=== PATIENT | female | born 1935 | race Caucasian/White ===

== ENCOUNTER 2016-12-28 12:30 | Inpatient (IN) | payer MEDICARE, MEDICAID ==
[2016-12-28] VITALS (10 sets, daily range): BP systolic 118–165; BP diastolic 63–92; PULSE 61–80; RESP 18–33; O2SAT 94–99
[~2016-12-28] VITALS: Ht 167.6 cm; Wt 137.9 kg
[~2016-12-28 12:30] MED LIST: ASPI-973 PO; ATEN25TA PO; CHOL100045 PO; HYDR-3939 PO; IPRA4AER IH; LISI-567 PO; OMEG-38 PO; ROPI0.5T2 PO; SERT100T9 PO; SULF1TAB35 PO; SYMINH INHALATION; TRAZ-115 PO; Vancomycin Dose per Pharmacist XX ONE
--- NOTE | 2016-12-28 12:48 | ED.REPORT ---
HPI-Dyspnea / Wheezing Date of Service Dec 28, 2016 ED Provider: Zurdo Jones DO Pt is an 81 y.o. female with a hx of CHF, HLD, and COPD on chronic c-pap who presents to the ED via EMS from an [facility] with increased SOB. Pt was on 4L of O2 and still had sats in the high 80's per EMS. PT told EMS that she has had worsening SOB over the past 2 days. Nurse at [facility] noticed increased work of breathing today and called EMS. Pt currently denies any pain. Nursing Notes Stated Complaint: SHORTNESS OF BREATH Chief Complaint: Respiratory Distress Nursing Notes Reviewed: Yes Allergies: Coded Allergies: No Known Allergies (Verified , 12/29/16) Scheduled Albuterol/Ipratropium (Combivent Respimat Inhal [place]) 120 Spr/4 Gm Inhaler 1 PUFF IH BID Aspirin (Aspirin) 81 Mg Tablet 81 MG PO DAILY Atenolol (Atenolol) 25 Mg Tablet 12.5 MG PO BID hold if SBP<110 or HR<60 Azithromycin (Azithromycin) 500 Mg Tablet 500 MG PO DAILY Budesonide/Formoterol 160-4.5 mcg Inh (Symbicort 160-4.5 mcg Inh) 120 Puff Inhaler 1 PUFF INHALATION BID Cholecalciferol (Vitamin D3) (Vitamin D) 1,000 Unit Capsule 2,000 UNIT PO DAILY Furosemide (Furosemide) 80 Mg Tab 80 MG PO DAILY Hydralazine (Hydralazine) 25 Mg Tablet 50 MG PO BID Lisinopril (Lisinopril) 20 Mg Tablet 20 MG PO BID Nystatin (Nystatin) 1 Each Powder.ea. 1 APPLIC TOPICAL BID [place]-3/Dha/Epa/Fish Oil (Fish Oil 1,000 mg Softgel) 1 Each Capsule 1 EACH PO DAILY Potassium Chloride (Potassium Chloride) 10 Meq Capsule.er 10 MEQ PO HS TAKE WITH FOOD Prednisone (PredniSONE) 20 Mg Tablet 20 MG PO DAILY Ropinirole (Ropinirole) 0.5 Mg Tablet 0.5 MG PO BID Sertraline HCl (Sertraline) 100 Mg Tablet 100 MG PO DAILY Trazodone (Trazodone) 50 Mg Tablet 100 MG PO HS Scheduled PRN Acetaminophen (Acetaminophen) 325 Mg Capsule 650 MG PO QID PRN PRN For Pain General Time Seen by MD: 12:41 Transferred From: snf Chief Complaint Shortness of breath Hx Obtained From: Patient, EMS Arrived By: Ambulance Sudden in Onset?: Yes Onset Occurred: Just prior to arrival Symptom Duration: Since onset Severity: Current: No pain currently Severity: Maximum: No pain Past Medical History Past Medical History Notes: Admitted for syncope in 2007 Echo EF of 65% and LVH in 2005 Past Medical History Hypertension DJD Clinical back pain Impression Nephrolithiasis History of recurrent urinary tract infections Obesity Hyperlipidemia COPD Reports: Congestive heart failure Past Surgical History Lower lumbar laminectomy Cholecystectomy Appendectomy Smoking History Former Smoker Social History Alcohol Use: "Social" Other Social History: Lives in [facility] Ambulatory Status Independent Review of Systems Respiratory: Reports: Shortness of breath Cardiovascular: Denies: Chest pain Musculoskeletal: Denies: Back pain, Extremity pain, Neck pain Complete sys rev & neg: except as marked. Physical Exam Initial Vital Signs Initial VS: Reviewed Head / Eyes: Atraumatic, Normocephalic Abdomen / GI: Soft, Non-tender, No distention Extremities: Vascular intact, Neuro intact Neurologic: Alert, Oriented, Nonfocal Psychiatric: Mood/affect normal, Behavior normal, Normal thought content General/Constitutional: Awake Appearance / Presentation: Positive: Obese, morbidly Neck: Atraumatic Resp Distress / Stridor: Positive: Resp distress severe Wheezing / Retractions: Positive: Accessory muscle use sev Pt on CPAP Expiratory coarse lung sounds throughout Cardiovascular: Heart rate NL, Regular rhythm, Heart sounds NL Lower Ext Edema: Positive: Bilateral 1+, Pitting Right Leg / Calf: Positive: Erythema present Left Leg / Calf: Positive: Erythema present Chronic lower extremity skin thickening Interpretation & Diagnostics Lab Results Interpretation Result Diagram: 01/01/175 01/01/17 0225 Test 12/28/16 13:00 12/28/16 13:21 Prothrombin Time 11.6sec (8.1-12.5) Prothromb Time International Ratio 1.08ratio Activated Partial Thromboplast Time 28.9sec (22.8-33.0) Urine Color Yellow (YELLOW) Urine Appearance Cloudy (CLEAR,HAZY) Urine pH 6.0 (5.0-8.0) Urine Specific [place] 1.018 (1.003-1.035) Urine Protein 100mg/dL (NEG,TRACE) Urine Glucose (UA) Negativemg/dL (NEGATIVE) Urine Ketones Negativemg/dL (NEGATIVE) Urine Occult Blood Trace (NEGATIVE) Urine Nitrite Positive (NEGATIVE) Urine Bilirubin Negative (NEGATIVE) Urine Urobilinogen Normalmg/dL (NORMAL) Urine Leukocyte Esterase Small (NEGATIVE) Urine RBC 0-2/hpf (0-2) Urine WBC 11-50/hpf (0-5) Urine Epithelial Cells Occasional/hpf (NONE-MOD) Urine Crystals None seen (NONE SEEN) Urine Bacteria Many/hpf (NONE-FEW) Urine Hyaline Casts None/lpf (NONE) Urine Granular Casts None seen (NONE SEEN) Urine Waxy Casts None seen (NONE SEEN) Urine Red Blood Cell Casts None seen (NONE SEEN) Urine White Blood Cell Casts None seen (NONE SEEN) Urine Mucus None seen (None Seen) Urine Trichomonas None seen (NONE SEEN) Urine Yeast None (NONE SEEN) Urinalysis Comment None Urine Culture Reflexed Indicated Lactic Acid Level 1.3mmol/L (0.4-2.0) Urine Legionella pneumophilia Ag Negative (Negative) Lab Results Interpretation: pH 7.42/52/60/33.4 FIO2 40 ECG Interpretation ECG Interpretation: LVH Similar to 07/20/16 Time: 13:04 Interpreted by: ED physician Normal ECG Interpretation: Normal rate (77), Normal sinus rhythm X-Ray Chest Interpretation Chest Xray Interpretation: IMPRESSION: Findings suspicious for right lower lung aspiration or pneumonia. Dictated by: Eddie Rabago M.D. on 12/28/2016 at 13:36 Approved by: Eddie Rabago M.D. on 12/28/2016 at 13:37 Re-Eval/Medical Decision Med Decision/Clinical Course 81-year-old female with a history of chronic oxygen and BiPAP dependent COPD presents by EMS with increasing respiratory distress over the past 3 days. She is a DO NOT RESUSCITATE/DO NOT INTUBATE patient which I did confirm with her at arrival. I also confirmed this with her daughter. She was switched to from EMS CPAP to hospital BiPAP at arrival and given a nebulizer of DuoNeb and her distress somewhat improved. She was also treated with magnesium, Solu-Medrol, and broad-spectrum antibiotics (Zosyn, vancomycin, and Levaquin) given that she is a prison resident. Found to have a right lower lobe pneumonia by chest x-ray. MAXIMUM TEMPERATURE of 39.2 in the ER with white count near 30 meeting criteria for sepsis. ABG revealed 7.4/52/60 on BiPAP 18/10 40% FiO2. Admitted to ICU Source of Hx: Old records Re-Evaluation/Progress : Time of Eval: 16:34 Re-Evaluation/Progress Note: Pt rechecked. Daughter is now present. Discussed labs, imaging results, and plan to admit. They understand and agree with plan. Confirmed pt code status. Consultation : Referral / Consult Name: Abena Joel MD Call Returned at: 15:23 Records Technician: Accepts admit Note: Discussed pt condition. Accepts admit. Counseled Regarding: Diagnosis, Lab results, Need for admission Discharge & Departure Impression: Primary Impression: Sepsis Sepsis type: sepsis due to unspecified organism Qualified Code: A41.9 - Sepsis, unspecified organism Additional Impressions: Right lower lobe pneumonia Pneumonia type: due to unspecified organism Qualified Code: J18.9 - Pneumonia, unspecified organism UTI (urinary tract infection) Urinary tract infection type: acute cystitis Hematuria presence: without hematuria Qualified Code: N30.00 - Acute cystitis without hematuria Respiratory failure Chronicity: acute on chronic Respiratory failure complication: hypoxia and hypercapnia Qualified Code: J96.21 - Acute and chronic respiratory failure with hypoxia Disposition: ADMITTED TO HOSPITAL Discharge Condition All VS Reviewed: Yes Condition: Stable Referrals: Jasmeet Xavier MD (PCP) Crit Care Except Billable Proc Time Spent: 30-74 minutes Services Performed: Patient management by me, Time spent at bedside, Reviewing test results, Reviewing imaging, Discussing patient care, Documentation in record Scribe Attestation Portions of this note were transcribed by Staci Lemus. I, Dr. Jones personally performed the history, physical exam and medical decision-making; I reviewed and confirmed the accuracy of the information in the transcribed note. Signed by: Fuentes De Anda, 12/28/2016 and 1637. copies to: Jasmeet Xavier MD, Gary R DO Dec 28, 2016 12:47 STACI LEMUS Dec 28, 2016 12:54 Urine Bilirubin Negative (NEGATIVE) Urine Urobilinogen Normalmg/dL (NORMAL) Urine Leukocyte Esterase Small (NEGATIVE) Urine RBC 0-2/hpf (0-2) Urine WBC 11-50/hpf (0-5) Urine Epithelial Cells Occasional/hpf (NONE-MOD) Urine Crystals None seen (NONE SEEN) Urine Bacteria Many/hpf (NONE-FEW) Urine Hyaline Casts None/lpf (NONE) Urine Granular Casts None seen (NONE SEEN) Urine Waxy Casts None seen (NONE SEEN) Urine Red Blood Cell Casts None seen (NONE SEEN) Urine White Blood Cell Casts None seen (NONE SEEN) Urine Mucus None seen (None Seen) Urine Trichomonas None seen (NONE SEEN) Urine Yeast None (NONE SEEN) Urinalysis Comment None Urine Culture Reflexed Indicated Lactic Acid Level 1.3mmol/L (0.4-2.0) Urine Legionella pneumophilia Ag Negative (Negative) Lab Results Interpretation: pH 7.42/52/60/33.4 FIO2 40 ECG Interpretation ECG Interpretation: LVH Similar to 07/20/16 Time: 13:04 Interpreted by: ED physician Normal ECG Interpretation: Normal rate (77), Normal sinus rhythm X-Ray Chest Interpretation Chest Xray Interpretation: IMPRESSION: Findings suspicious for right lower lung aspiration or pneumonia. Dictated by: Eddie Rabago M.D. on 12/28/2016 at 13:36 Approved by: Eddie Rabago M.D. on 12/28/2016 at 13:37 Re-Eval/Medical Decision Source of Hx: Old records Re-Evaluation/Progress : Time of Eval: 16:34 Re-Evaluation/Progress Note: Pt rechecked. Daughter is now present. Discussed labs, imaging results, and plan to admit. They understand and agree with plan. Confirmed pt code status. Consultation : Referral / Consult Name: Abena Joel MD Call Returned at: 15:23 Records Technician: Accepts admit Note: Discussed pt condition. Accepts admit. Counseled Regarding: Diagnosis, Lab results, Need for admission Discharge & Departure Impression: Primary Impression: Sepsis Additional Impressions: Respiratory distress Right lower lobe pneumonia UTI (urinary tract infection) Disposition: ADMITTED TO HOSPITAL Discharge Condition All VS Reviewed: Yes Condition: Stable Referrals: Jasmeet Xavier MD (PCP) Crit Care Except Billable Proc Time Spent: 30-74 minutes Services Performed: Patient management by me, Time spent at bedside, Reviewing test results, Reviewing imaging, Discussing patient care, Documentation in record Scribe Attestation Portions of this note were transcribed by Staci Lemus. Dr. Robert Chahal personally performed the history, physical exam and medical decision-making; I reviewed and confirmed the accuracy of the information in the transcribed note. Signed by: Fuentes De Anda, 12/28/2016 and 1637. copies to: Jasmeet Xavier MD, Gary R DO Dec 28, 2016 12:47 STACI LMEUS Dec 28, 2016 12:54
[2016-12-28] MEDS ORDERED: Albuterol-Ipratropium 3 mL Inhalation Solution ONE (12:49)
[2016-12-28] MEDS ORDERED: Albuterol-Ipratropium 3 mL Inhalation Solution NEB ONE (12:50)
[2016-12-28] MEDS ORDERED: MethylprednisoLONE Sodium Succinate 62.5 mg/mL 2 mL Inj IVPUSH ONE (12:50)
[2016-12-28] MEDS ORDERED: Albuterol 2.5 mg/3 mL Inhalation Solution NEB ONE (12:50)
[2016-12-28] MEDS ORDERED: Magnesium Sulf 2 Gm/50mL Water 2 GM in IV Premix 1 EACH IV ONE ×2 (12:50→16:55)
[2016-12-28] MEDS ORDERED: Piperacillin-Tazo 3.375 Gm Inj 3.375 GM in Dextrose 5% Minibag Plus 50 ML IV ONE (13:30)
[2016-12-28] MEDS ORDERED: Vancomycin Inj 2,000 MG in 0.9% Sodium Chloride 500 ML IV ONE (13:35)
[2016-12-28 13:37] LABS: BASOPHILS % (AUTO) 0.1 % (0-3); EOSINOPHILS % (AUTO) 0 % (0-5); Mean Corpuscular Hemoglobin 29.7 pg (27.0-35.0)
--- NOTE | 2016-12-28 13:39 | DRSVH ---
PROCEDURE: X-RAY CHEST ONE VIEW, PORTABLE ([id number]) INDICATIONS: 81 year-old female with shortness of breath. TECHNIQUE: One view of the chest was acquired. COMPARISON: [facility], CR, XR CHEST 1VW (PORTABLE), 07/20/2016, 11:07. [facility], CR, XR CHEST 1VW (PORTABLE), 07/19/2015, 15:30. [facility], CR, CHEST 1VW (PORTAB LE), 06/27/2008, 13:28. FINDINGS: Surgical changes and devices: None. Lungs and pleura: No pleural effusions or pneumothorax. There is new right lower lung airspace opaci ty. Left lung appears clear. Mediastinum: Mediastinal contours appear normal. Mild cardiomegaly is unchanged. Bones and chest wall: No suspicious bony lesions. Overlying soft tissues appear unremarkable. IMPRESSION: Findings suspicious for right lower lung aspiration or pneumonia. Dictated by: Eddie Rabago M.D. on 12/28/2016 at 13:36 Approved by: Eddie Rabago M.D. on 12/28/2016 at 13:37
[2016-12-28 13:41] LABS: MONOCYTES % (AUTO) 8.5 % (4-12); Mean Corpuscular Volume 92.5 fL (81-100); NEUTROPHILS % (AUTO) 88.2 % (40-74); Platelet Count 283 bil/L (150-400)
[2016-12-28 13:43] LABS: APPEARANCE,URINE CLOUDY (CLEAR,HAZY); COLOR,URINE YELLOW (YELLOW); OCCULT BLOOD,URINE TRACE (NEGATIVE); UROBILINOGEN,URINE NORMAL (NORMAL)
[2016-12-28 13:49] LABS: INR 1.08 ratio
[2016-12-28 14:12] LABS: TROPONIN T < 0.010 ug/L (0.0-0.011)
[2016-12-28 14:20] LABS: Magnesium 1.9 mg/dL (1.6-2.6)
[2016-12-28] MEDS ORDERED: Furosemide 10 mg/mL 4 mL Inj IVPUSH ONE (14:25)
--- NOTE | 2016-12-28 14:47 | ABG ---
DateTimeAnalyzed 14:41:00 -_ pH ____7.421 - 7.201 7.300 pCO2 ___52.4__ -mmHg 40.0 50.9 pO2 ___60.1__ -mmHg 45.0 70.0 HCO3- ___33.4__ -mmol/L 20.0 24.0 ABE ____7.9__ -mmol/L -2.0 2.0 tHb ___12.1__ -g/dL 12.0 18.0 O2Hb ___89.5__ -% 95.0 COHb ____1.4__ -% 1.5 MetHb ____0.9__ -% 0.4 1.5 sO2 ___91.6__ -% FIO2 ___40.0__ -% Set_RR ___18.0__ -b/min Drawn By btl - Date/Time Notified____ 14:47:00 -_ Spontaneous_RR ___30.0__ -b/min Oxygen Device 1 ____BIPAP - Notified By BTL - Notified Whom ___Dr. Andelin - B 745 -mmHg tO2 ___15.3__ -Vol% Timmy test N/A -
[2016-12-28] MEDS ORDERED: levoFLOXacin Inj 500 MG in IV Premix 1 EACH IV ONE (16:00)
[2016-12-28] MEDS ORDERED: Albuterol 2.5 mg/3 mL Inhalation Solution NEB PRN (16:20)
[2016-12-28] MEDS ORDERED: Glucose 40% Oral Gel 15 Gm Tube PO PRN ×2 (16:20→16:55)
[2016-12-28] MEDS: Albuterol 2.5 mg/3 mL Inhalation Solution NEB SCH ×2 (16:30→20:30)
--- NOTE | 2016-12-28 16:59 | PCM.HPMED ---
Subjective Date of Service Dec 28, 2016 Primary Provider: Admitting Physician: Abena Joel MD Primary Care Physician: Jasmeet Xavier MD Attending Physician: Abena Joel MD Chief Complaint: Hypoxia at her assisted living HISTORY was OBTAINED FROM DAUGHTER/ [facility] NOTES History of present illness 81-year-old female, last week doing well, 3 days worth of shortness of breath per [facility]/EMS notes, associated fevers, increased weakness to the point that she has not been able to use her walker, increased urinary frequency. EMS administered Nitropaste, noted 70% on 4 L. In the ER, MAXIMUM TEMPERATURE 39.2 initial respiratory rate 33 7.4/52/60 on BiPAP 18/10 40% FiO2, Levaquin, vancomycin, Zosyn Review of Systems - unable to obtain she is somnolent on the BiPAP does open her eyes, daughter indicates no recent diarrhea no recent skin buttocks breakdown Thin liquids, ADA diet, uses walker No dysphagia/choking her daughter FAMILY HX father with unknown cancer SOCIAL HX former smoker daughter at bedside MEDICATIONS Lasix 80 potassium 10 Sertraline 100 Repair O0.5 twice a day Lisinopril 20 Budesonide formoterol Combivent Atenolol 12.5 daily at bedtime hydralazine 50 twice a day Trazodone 100 daily at bedtime Aspirin Past Medical/Surgical HX 4 L O2 dependent/CPAP/SONG Kidney stone/UTIs Dyslipidemia Goiter Peripheral vascular disease Depression Hip pain Diabetes 2 Restless leg syndrome Admitted for syncope in 2007 Echo EF of 65% and LVH in 2005 Allergies Coded Allergies: No Known Allergies (Verified , 07/20/15) PMH Social History Hx Alcohol Use: Yes (rarely drinks an occasional wine) Hx Substance Use: No Smoking Status: Former Smoker Exam Vital Signs Vital Sign - Last Date Time Temp Pulse Resp B/P Pulse Ox O2 Delivery O2 Flow Rate FiO2 12/28/16 15:38 72 25 128/64 98 BiPAP 12/28/16 13:24 39.2 12/28/16 13:14 40 Lab and Diagnostics Labs Exam on admission BiPAP mask NAD A and O x 3 somnolent attempts to answer questions but clearly fatigued NC/AT no icterus no injected eyes EOMI PERRL /no pharyngeal lesions/ no oral lesions / hearing intact Supple neck Bilateral diminished breath sounds equal chest rise / accessory muscle use / speaks in 1 word at a time/ no rrw RRR S1 S2 / no mrg / 2+ radial pulses Soft nt nd + BS no hepatosplenomegaly Mild edema, diffuse leg tenderness to palpation no cyanosis no ecchymosis of lower extremities No rash / no jaundice MCDONALD No overt groin intertrigo symmetrical facies concentrated urine andrews bag < 400cc EKG ventricular trigeminy heart rate [address] is unchanged from last year Trop BNP [id number] 06/2016 lactic acid 1.3 Pro calcitonin 0.24 UA positive nitrite positive leukocyte Estrace positive bacteria no yeast LFT Imaging PROCEDURE: X-RAY CHEST ONE VIEW, PORTABLE ([id number]) INDICATIONS: 81 year-old female with shortness of breath. TECHNIQUE: One view of the chest was acquired. COMPARISON: [facility], CR, XR CHEST 1VW (PORTABLE), 07/20/2016, 11: 07. [facility], CR, XR CHEST 1VW (PORTABLE), 07/19/2015, 15:30. [facility], CR, CHEST 1VW (PORTABLE), 06/27/2008, 13:28. FINDINGS: Surgical changes and devices: None. Lungs and pleura: No pleural effusions or pneumothorax. There is new right lower lung airspace opacity. Left lung appears clear. Mediastinum: Mediastinal contours appear normal. Mild cardiomegaly is unchanged. Bones and chest wall: No suspicious bony lesions. Overlying soft tissues appear unremarkable. IMPRESSION: Findings suspicious for right lower lung aspiration or pneumonia. Result Diagram: 12/28/16 1300 12/28/16 1248 Assessment & Plan Active issues and reason for admission right lower lobe pneumonia with UTI with leukocytosis and fevers treating as sepsis and respiratory failure hypoxia, -- DuoNeb Solu-Medrol vancomycin Levaquin and Zosyn BiPAP when necessary ABGs -- Strep pneumonia is negative, viral respiratory cultures sputum culture pending --swallowl eval pending, already on modified diet at [facility] consider contributory CHF exacerbation if ongoing hypoxia --no prior dCHF dx --pending trop serial Ventricular trigeminy, resolved -- s/p Magnesium 4g Chronic issues known prior to admission, present on admission HTN 4 L O2 dependent/CPAP/SONG Kidney stone/UTIs Dyslipidemia Goiter Peripheral vascular disease Depression Hip pain Diabetes 2 Restless leg syndrome --resume home lasix, continue home bp meds SSI/ hold home inhalers --ppi while on solumedrol // SSI Diet thin liq / ADA diet DVT prophylaxis lovenox Code DNR/Iinpt Assessment and plan were discussed with patient family. Abena Joel MD Dec 28, 2016 16:59
[2016-12-28] MEDS: Insulin LISPRO 300 Unit/3 mL Inj SUBQ SCH ×4 (17:30→21:33)
[2016-12-28 17:56] LABS: Magnesium 2.4 mg/dL (1.6-2.6)
[2016-12-28] MEDS: MethylprednisoLONE Sodium Succinate 62.5 mg/mL 2 mL Inj IVPUSH SCH (18:27)
[2016-12-28] MEDS ORDERED: 0.9% Sodium Chloride 250 ML ONE (18:30)
[2016-12-28 18:31] LABS: TROPONIN T < 0.010 ug/L (0.0-0.011)
[2016-12-28] MEDS ORDERED: POTA10CA42 PO (20:35)
[2016-12-28] MEDS ORDERED: FRSM80T PO (20:40)
[2016-12-28] MEDS ORDERED: ACET325C PO (20:41)
--- NOTE | 2016-12-28 20:44 | NUR ---
med rec med rec updated per snf record.
[2016-12-28] MEDS ORDERED: Insulin GLARgine 100 Unit/mL Syringe SUBQ SCH (21:00)
[2016-12-28] MEDS: Piperacillin-Tazo 3.375 Gm Inj 3.375 GM in Dextrose 5% Minibag Plus 50 ML IV SCH (21:57)
[2016-12-28] MEDS: Insulin GLARgine 100 Unit/mL Syringe SUBQ SCH (22:27)
[2016-12-29] VITALS (14 sets, daily range): BP systolic 94–138; BP diastolic 58–91; PULSE 61–75; RESP 18–25; O2SAT 92–98
[2016-12-29] MEDS: Albuterol 2.5 mg/3 mL Inhalation Solution NEB SCH ×6 (00:15→20:26)
[2016-12-29] MEDS: MethylprednisoLONE Sodium Succinate 62.5 mg/mL 2 mL Inj IVPUSH SCH ×2 (00:59→07:57)
[2016-12-29 03:52] LABS: TROPONIN T 0.01 ug/L (0.0-0.011)
--- NOTE | 2016-12-29 05:52 | NUR ---
BIPAP/Lungs Pt remains on BIPAP throughout night with no problems. She will rouse and answer questions appropriately when asked, but otherwise sleeps with BIPAP on. Difficult to auscultate lungs and bowel tones, probably d/t size. SpO2 remained mid to low 90s on BIPAP with no signs of respiratory distress. Will continue to monitor. Care ongoing
[2016-12-29] MEDS: Piperacillin-Tazo 3.375 Gm Inj 3.375 GM in Dextrose 5% Minibag Plus 50 ML IV SCH (06:12)
--- NOTE | 2016-12-29 06:38 | NUR ---
Neuro Pt extremely forgetful. Definitely more alert, but she continues to ask "Where am I? Why am I here? Where did I come from?" despite me answering this for her numerous times. Unsure if this is baseline for her or underlying cause. Will monitor closely. Care ongoing
[2016-12-29] MEDS: Pantoprazole 20 mg ER24 Tablet PO SCH (07:57)
[2016-12-29] MEDS: Insulin LISPRO 300 Unit/3 mL Inj SUBQ SCH ×4 (07:59→22:00)
[2016-12-29] MEDS: Furosemide 10 mg/mL 4 mL Inj IVPUSH SCH (07:59)
--- NOTE | 2016-12-29 11:20 | NUR ---
Evaluation completed. Please go to "Notes" then click on "Assessments and Notes" (bottom left corner of screen). Then select appropriate discipline tab on top of screen.
[2016-12-29] MEDS: 0.9% Sodium Chloride 1,000 ML IV SCH (13:14)
[2016-12-29] MEDS ORDERED: HYDROmorphone 0.5 mg/0.5 mL iSecure Syringe IVPUSH ONE (13:50)
[2016-12-29] MEDS ORDERED: levoFLOXacin Inj 750 MG in IV Premix 1 EACH IV SCH (14:00)
[2016-12-29] MEDS: cefTRIAXone Inj 1,000 MG in Dextrose 5% Minibag Plus 50 ML IV SCH (14:25)
[2016-12-29] MEDS: Azithromycin Inj 500 MG in Dextrose 5% w/Vial Mate 250 ML IV SCH (14:56)
--- NOTE | 2016-12-29 15:31 | PCM.CHPMED ---
Subjective Date of Service: Dec 29, 2016 Primary Physician: Admitting Physician: Abena Joel MD Primary Care Physician: Jasmeet Xavier MD Attending Physician: Abena Joel MD Admit Status: From the Emergency Department Chief Complaint: Chief Complaint: Shortness of breath History of Present Illness: Pulmonary consult 81-year-old female with a history of oxygen dependent SONG and obesity with BMI 56.6 he presented to the emergency department via EMS from [place] due to ongoing shortness of breath that has worsened over the last 3 days. Per admit note patient was doing well last week but 3 days ago began having increased weakness, fevers, became unable to use her walker, and reported urinary frequency per care home staff. On interview patient frequently responds to questions "I do not know." She does admit to being a former smoker with smoking exposure as a child. She denies cough although she is coughing on interview, fevers although she has a recorded fever above 39C in the ED, lightheadedness, chest pain, and does not know if she has sick contacts. She does not know if she has a history of tuberculosis exposure, received vaccinations, history of asthma. 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 On admit patient was placed on duonebs, Solu-Medrol, vancomycin, Levaquin, Zosyn , and BiPAP. ABG: PH is 7.421, PCO2 is 52.4, PO2 60.1, bicarbonate is 33.4. Antibiotics were changed earlier today to ceftriaxone and azithromycin. Mental prednisolone was reduced to 40 mg daily today. Labs yesterday morning reveal a white count of 28.2, hemoglobin 13.0, hematocrit of 40.5, platelets of 283 with a left shift. Electrolytes are relatively normal with the glucose of 178. Her procalcitonin was elevated at 0.74. Urine was positive for nitrites, leukocyte esterase, and bacteria; sent for culture Chest x-ray suspicious for right lower lobe pneumonia/aspiration Review of Systems: Complete review of systems was attempted however patient is a poor historian and frequently replies with "I do not now." PMH Past Medical History 4 L O2 dependent/CPAP/SONG Kidney stone/UTIs Dyslipidemia Goiter Peripheral vascular disease Depression Hip pain Diabetes 2 Restless leg syndrome Admitted for syncope in 2007 Echo EF of 65% and LVH in 2005 Bedside Blood Glucose: 170 Surgical History None reported Home Medications Lasix 80 potassium 10 Sertraline 100 Repair O0.5 twice a day Lisinopril 20 Budesonide formoterol Combivent Atenolol 12.5 daily at bedtime hydralazine 50 twice a day Trazodone 100 daily at bedtime Aspirin Allergies: Coded Allergies: No Known Allergies (Verified , 12/29/16) Family History Family History Father of unknown cancer Social History Hx Alcohol Use: Yes (rarely drinks an occasional wine)Hx Substance Use: NoHx Tobacco Use: Yes Smoking Status: Former Smoker Exam Vital Signs Vital Sign - Last Date Time Temp Pulse Resp B/P Pulse Ox O2 Delivery O2 Flow Rate FiO2 12/29/16 11:47 64 24 125/82 96 40 12/29/16 11:42 36.8 BiPAP 12/29/16 08:16 7.00 Intake and Output 12/28/16 12/28/16 12/29/16 Cumulative From/Thru 15:00 23:00 07:00 12/28/16 12:43 - 12/29/16 06:37 Intake Total 256 ml 256 ml Output Total 400 ml 400 ml Balance -144 ml -144 ml Intake Oral 50 ml 50 ml IV Total 206 ml 206 ml Output Urine Total 400 ml 400 ml # Bowel Movements 0 0 Additional Information: GEN: Morbidly obese female; mild to moderate respiratory distress; responsive HEENT: BPAP in place, dry Cardio: Regular rate and rhythm no murmurs rubs gallops Respiratory: Very difficult to auscultate due to habitus; no pertinent positives identified although again I did not hear any air movement at all Abdomen: Positive bowel sounds Extremities: Mild edema severe pain on palpation Psych: Patient seems to be confused and forgetful Neuro: Patient is responsive sensation intact in lower extremities Skin: Dry flaky Lab and Diagnostics Result Diagram: 12/28/16 1300 12/28/16 1715 X-Rays, CTs and MRIs Chest X-ray IMPRESSION: Findings suspicious for right lower lung aspiration or pneumonia. Dictated by: Eddie Rabago M.D. on 12/28/2016 at 13:36 Assessment & Plan Assessment Assessment 81-year-old female with ongoing worsening of her chronic respiratory failure. It appears the patient is on 4 L of home O2 with CPAP at night for SONG. Patient lives at [place] and is susceptible to HCAP with what appears to be a right lower lobe consolidation and has recently not passed her swallow exam. Patient also has positive for RSV. It is likely this patient suffers from sepsis from pneumonia that is worsened by a combination of COPD, obesity hypoventilation, and ongoing RSV. Problem list 1. Acute on chronic hypercarbic respiratory failure 2. HCAP with right lower lobe consolidation versus aspiration 3. Confirmed RSV 4. Acute sepsis 5. Presumed UTI Recommendations -ABG in the morning -Be fitted for home Trilogy, -Repeat AM labs -Repeat CXR in AM -Consider covering for HCAP until MRSA screen returns Thank you for allowing us to participate in the care of this patient. Please let us know if there are any additional questions. Problems: Pain Evaluation: Adequate Pain Control VTE Prophylaxis: Sub-Q Enoxaparin Resuscitation Status: Limited Interventions Attending Statement The patient was seen and examined together with Dr. Palma on 12/29/2016 and I agree with the history, exam and plan as outlined in the note above. Miller Palma DO Dec 29, 2016 15:30 Saurabh Conti MD Jan 05, 2017 12:26
--- NOTE | 2016-12-29 15:47 | NUR ---
BREATHING/MEDS P- Patient continues to require O2 to keep saturation above 90, decreases to mid 80's with periodic oral care, dyspnea with activity. Need to adjust antibiotics per microorganism. I- BiPAP running at 40% 08/07. New antibiotics given per MD. E-O2 saturation 97%, respirations 20, VSS. LABS-WBC 28.2 NEURO-Decreased hearing, at times appears confused CVS- SR 60'S PLUM- Decreased right lower, see above note. GI-NPO per speech therapy, oral care - [place] SKIN- Breast/saray Nystatin, dry lower extremity PAIN-C/O lower limb, IVP Dilaudid given IV-NS 100 PLAN- Stabilize, pulmonary consult, antibiotic Tx.
[2016-12-29] MEDS ORDERED: 0.9% Sodium Chloride 500 ML IV ONE (16:10)
--- NOTE | 2016-12-29 16:17 | DRSVH ---
[facility] [address] [place] [address] Echocardiogram Report Name: DANIELLE BECERRA EStudy Date: 12/29/2016 Height: 66 in Hospital Exam Location: [facility] Weight: 350 lb Gender: Female BSA: 2.5 m2 : 1935 Age: 81 yrs BP: 125/82 mmHg Reason For Study: DYSPNEA Ordering Physician: HOSPITALIST SVHPerformed By: Zane Saba Referring Physician: Kanika EVANS Interpretation Summary The left ventricle is mildly dilated. Left ventricular wall thickness is mildly increased. Left ventricular systolic function is normal. The ejection fraction is estimated to be 60-65%. There are no focal wall motion abnormalities. Assessment of diastolic parameters indicates a relaxation abnormality of the left ventricle, consistent with normal filling pressures. The right ventricle is not well visualized. The right ventricle grossly appears normal in size with probable normal systolic function. Pulmonary artery pressures cannot be estimated because of the lack of a measurable TR jet velocity. The left atrium is mildly dilated. Right atrium not well visualized. There is no significant valvular heart disease. The ascending aorta is at the upper limits of normal in size. Procedure: A two-dimensional transthoracic echocardiogram with color flow and Doppler was performed. The study quality was technically difficult. Comparison is made with the echocardiogram of 07/19/15. The patient was supine with her head elevated 30 degrees during the exam. The subcostal views were difficult to obtain and are suboptimal in quality. A contrast injection of Definity was performed to improve assessment of LV function. The patient was in normal sinus rhythm during the exam. Left Ventricle: The left ventricle is mildly dilated. Left ventricular wall thickness is mildly increased. Left ventricular systolic function is normal. The ejection fraction is estimated to be 60-65%. There are no focal wall motion abnormalities. Assessment of diastolic parameters indicates a relaxation abnormality of the left ventricle, consistent with normal filling pressures. Right Ventricle: The right ventricle is not well visualized. The right ventricle grossly appears normal in size with probable normal systolic function. Atria: The left atrium is mildly dilated. Right atrium not well visualized. The interatrial septum is intact with no evidence for an atrial septal defect. Mitral Valve: The mitral valve is normal in structure but abnormal in function. There is no mitral regurgitation noted. Aortic Valve: There is no aortic valve stenosis. There is trace aortic regurgitation. Tricuspid Valve: The tricuspid valve is not well visualized, but is grossly normal. No tricuspid regurgitation. Pulmonary artery pressures cannot be estimated because of the lack of a measurable TR jet velocity. Pulmonic Valve: The pulmonic valve is not well visualized. There is no significant valvular heart disease. Great Vessels: The aortic root is normal size. The ascending aorta is at the upper limits of normal in size. The pulmonary artery is normal size. The inferior vena cava was not visualized. Pericardium/ Pleura There is no pericardial effusion. There is no pleural effusion. MMode/2D Measurements & Calculations LVIDd: 5.6 cm LA A4 area LVOT diam LV chery. diameter/BSA LVIDs: 4.1 cm (cm/m^2): 2.2 FS: 26.6 % Ao root diam IVSd: 1.5 cm LA length LVPWd: 1.0 cm (vol): 6.0 cm asc Aorta Diam: 3.5 cm LV sys. diameter/BSA (cm/m^2): 1.6 Doppler Measurements & Calculations Ao V2 max MV E max juan MV E/A: 0.61 PA V2 max : 154.1 cm/sec : 51.1 cm/sec Med Peak E' Juan : 105.1 cm/sec Ao max P.5 mmHg MV A max juan PA mean PG Ao mean P.9 mmHg : 84.1 cm/sec E/E' med: 10.3 LVOT Max Juan Pulm A Revs Dur PA Accel Time : 88.7 cm/sec : 0.06 sec MV A dur CARI(I,D): 2.4 cm : 0.15 sec sev ratio: 0.63 MV dec time: 0.24 secAo V2 mean LV V1 max PG PA V2 mean : 118.2 cm/sec : 71.6 cm/sec Ao V2 VTI: 33.2 cm LV V1 VTI PA pr(Accel) CARI(V,D): 2.2 cm2 : 20.8 cm : 45.7 mmHg CARI indexed to BSA Pulm A Revs Dur - MV A (cm^2/m^2): 0.96 Dur: -0.03 msec Reading Physician:AMELIA
[2016-12-29] MEDS: Nystatin 100,000 Unit/Gm 15 Gm Powder TOPICAL SCH ×2 (16:54→22:13)
--- NOTE | 2016-12-29 17:24 | PCM.PNMED ---
Subjective Date of Service Dec 29, 2016 Subjective Mrs. Shayy Butler is an 81-year-old lady with a history of oxygen dependent obstructive sleep apnea and obesity with BMI 56.6 who presented to the emergency department via EMS from [place] due to ongoing shortness of breath that has worsened over the last 3 days. Per admit note patient was doing well last week but 3 days ago began having increased weakness, fevers, became unable to use her walker, and reported urinary frequency per custodial staff. Baseline mental status is unknown, she is currently confused and on interview frequently responds to questions with "I do not know." She does admit to being a former smoker with smoking exposure as a child. She denies cough although she is coughing on interview, fevers although she has a recorded fever above 39 C in the ED, lightheadedness, chest pain. She is currently requiring BiPAP to maintain her oxygen saturations. Overnight events: No significant overnight events. Today: Patient is sitting up in bed with BiPAP in place and claims that she is breathing well. She is asking for water to drink and states light touch of her lower extremities is painful. She is currently not oriented to place or time but is oriented to person. Exam Vital Signs Vital Sign - Last Date Time Temp Pulse Resp B/P Pulse Ox O2 Delivery O2 Flow Rate FiO2 12/29/16 16:18 37.3 63 18 123/87 96 BiPAP 40 12/29/16 08:16 7.00 Intake and Output 12/28/16 12/28/16 12/29/16 Cumulative From/Thru 15:00 23:00 07:00 12/28/16 12:43 - 12/29/16 06:37 Intake Total 256 ml 256 ml Output Total 400 ml 400 ml Balance -144 ml -144 ml Intake Oral 50 ml 50 ml IV Total 206 ml 206 ml Output Urine Total 400 ml 400 ml # Bowel Movements 0 0 Exam General: Elderly obese lady lying in bed tolerating BiPAP, in place in no acute distress, well-nourished, appropriately interactive HEENT: Normocephalic, atraumatic. External ears without defect. Pupils equal, round, and reactive to light and accommodation. Anicteric sclerae, moist conjunctivae, and no lid lag. Oropharynx free of erythema and cobble stoning with moist mucosa. Neck: Supple with full range of motion. JVD difficult to identify due to girth of neck. No bruits. No lymphadenopathy or thyromegaly. Cardiovascular: Regular rate and rhythm with no murmurs, rubs, or gallops appreciated. Pulmonary: Clear to auscultation bilaterally with no crackles, wheezes, or rhonchi. Normal respiratory effort with no use of accessory muscles. Abdomen: Bowel tones present. Soft, obese, nontender, nondistended. No hepatosplenomegaly or masses appreciated. Extremities: No clubbing, cyanosis, edema present throughout however might be just very obese. or lymphadenopathy appreciated. Skin: Normal temperature, turgor, and texture; mild venous stasis rash in lower extremities, ulcers, or subcutaneous nodules appreciated. Neurological: Cranial nerves grossly intact. Normal muscle strength, tone, and bulk. Reflexes, coordination, and sensory function within normal limits. No known gait impairment. Psychiatric: Oriented to person not place or time. Alert and confused. IVs and Medications Medications Reviewed: Medications were reviewed in detail Lab and Diagnostics Result Diagram: 12/28/16 1300 12/28/16 1715 Microbiology MRSA screen pending. 12/28/2016 Viral PCR positive for respiratory syncytial virus. 12/28/2016 Blood cultures 2: No growth after 24 hours. 12/28/2016 Strep pneumo antigen negative. 12/28/2016 Urine culture positive for greater than 100,000 CFU's for gram-negative rods. 12/28/2016 Influenza screen negative. 12/28/2016 X-Rays, CTs and MRIs X-RAY CHEST ONE VIEW, PORTABLE IMPRESSION: Findings suspicious for right lower lung aspiration or pneumonia. Dictated by: Eddie Rabago M.D. on 12/28/2016 at 13:36 Cardiac Echo Impressions Echocardiogram Report Interpretation Summary The left ventricle is mildly dilated. Left ventricular wall thickness is mildly increased. Left ventricular systolic function is normal. The ejection fraction is estimated to be 60-65%. There are no focal wall motion abnormalities. Assessment of diastolic parameters indicates a relaxation abnormality of the left ventricle, consistent with normal filling pressures. The right ventricle is not well visualized. The right ventricle grossly appears normal in size with probable normal systolic function. Pulmonary artery pressures cannot be estimated because of the lack of a measurable TR jet velocity. The left atrium is mildly dilated. Right atrium not well visualized. There is no significant valvular heart disease. The ascending aorta is at the upper limits of normal in size. Additional Diagnostics [facility] DateTimeAnalyzed 14:41:00 -_ pH ____7.421 - 7.201 7.300 pCO2 ___52.4__ -mmHg 40.0 50.9 pO2 ___60.1__ -mmHg 45.0 70.0 HCO3- ___33.4__ -mmol/L 20.0 24.0 Assessment & Plan Mrs. Shayy Butler is an 81-year-old lady with a history of oxygen dependent obstructive sleep apnea and obesity with BMI 56.6 who presented to the emergency department via EMS from [place] due to ongoing shortness of breath that has worsened over the last 3 days. Per admit note patient was doing well last week but 3 days ago began having increased weakness, fevers, became unable to use her walker, and reported urinary frequency per custodial staff. Baseline mental status is unknown, she is currently confused and on interview frequently responds to questions with "I do not know." She does admit to being a former smoker with smoking exposure as a child. She denies cough although she is coughing on interview, fevers although she has a recorded fever above 39 C in the ED, lightheadedness, chest pain. She is currently requiring BiPAP to maintain her oxygen saturations. 1. Sepsis, present on admission. Active. - Sepsis criteria met in the ED temperature 39.2, respiratory rate 33, white blood cell count 28.2, UTI, respiratory failure - Received Levaquin, vancomycin, and Zosyn in the emergency department 2016, discontinued 12/29/2016 - Started IV Rocephin 1 g daily and IV azithromycin 500 mg daily. - Lactic acid 1.3, 12/28/2016. 2. Acute on chronic Respiratory failure, present on admission. Active. - On home O2, not sure what rate. - Currently requiring BiPAP FiO2 40%. - ABGs per above. - Pulmonology team consulted, recommendations appreciated. - NS IV @100 ml/hour 3. Acute on chronic COPD exacerbation, present on admission. Active. - Continue appropriate treatments with scheduled Solu-Medrol, duo nebs, albuterol, per above. 4. Acute respiratory syncytial virus infection, present on admission. Active. - Viral PCR positive for respiratory syncytial virus. - Continue supportive care. 5. Acute urinary tract infection, present on admission. Active. - UA per above. - Urinary culture, greater than 100,000 colony-forming units gram-negative rods. - Treatment per above. 6. Right lower lobe pneumonia, present on admission. Active. - Scheduled DuoNeb - Discontinue Solu-Medrol 125 mg every 8, start 40 mg IV Solu-Medrol daily. - Swallowl eval pending, already on modified diet at [place] noted 7. Possible CHF exacerbation, present on admission. Active. - No prior dCHF dx - Troponin negative 3. - BNP - 4434 - Echocardiogram pending. 8. Ventricular trigeminy, present on admission. Resolved. - s/p Magnesium 4g 9. Intertrigo, present on admission. Active. - Possible yeast infection/rash under breasts bilaterally. - Nystatin powder twice a day. 10. Chronic hypertension, present on admission. Controlled. - Continue home Lasix. - Continue home hydralazine 50 mg twice a day. 11. Super morbid obesity, present on admission. Active. - BMI 56.6 12. Chronic Depression, present on admission. Active. - Continue home medications - Ropinirole 0.5 mg twice a day. - Sertraline 100 mg daily. - Trazodone 50 mg at night. Code DNR/Iinpt Acetaminophen for mild pain when necessary. Bowel regimen Senna and MiraLAX scheduled and PRN. Zofran when necessary for nausea and vomiting. SubQ heparin held for now. SCDs in place. Subcutaneous enoxaparin High-risk medications: IV Dilaudid 0.5 mg 1 time Disposition: Likely here for > 2 midnights. Dependent upon respiratory status. Will be discharged to [place] likely greater than 2 days. Pain Evaluation: Adequate Pain Control VTE Prophylaxis: Sub-Q Enoxaparin Resuscitation Status: Limited Interventions Attending Statement The patient was seen and examined together with Dr. Arredondo on 12/29/16 and I agree with the history, exam and plan as outlined in the note above. . REAL ARREDONDO DO Dec 29, 2016 17:24 Clifton Contreras MD Dec 29, 2016 20:45
[2016-12-29] MEDS: Insulin GLARgine 100 Unit/mL Syringe SUBQ SCH (22:17)
[2016-12-30] VITALS (16 sets, daily range): BP systolic 125–164; BP diastolic 71–121; PULSE 55–67; RESP 18–26; O2SAT 93–98
[2016-12-30] MEDS: Albuterol 2.5 mg/3 mL Inhalation Solution NEB SCH ×7 (00:40→23:47)
[2016-12-30 04:12] LABS: BASOPHILS % (AUTO) 0.1 % (0-3); EOSINOPHILS % (AUTO) 0 % (0-5); MONOCYTES % (AUTO) 5.8 % (4-12); Mean Corpuscular Hemoglobin 29.7 pg (27.0-35.0); Mean Corpuscular Volume 92.6 fL (81-100); NEUTROPHILS % (AUTO) 88.7 % (40-74); Platelet Count 270 bil/L (150-400)
[2016-12-30] MEDS: 0.9% Sodium Chloride 1,000 ML IV SCH ×2 (05:25→09:09)
--- NOTE | 2016-12-30 07:00 | NUR ---
Respiratory Pt is confused and forgetful. She on BiPAP throughout at 40% FIO2. SPO2 mid-high 90s. Tolerating BiPAP well. NPO status. No overt complications noted.
[2016-12-30] MEDS: Pantoprazole 20 mg ER24 Tablet PO SCH (07:30)
[2016-12-30] MEDS: Insulin LISPRO 300 Unit/3 mL Inj SUBQ SCH ×4 (08:00→22:16)
[2016-12-30] MEDS: Azithromycin Inj 500 MG in Dextrose 5% w/Vial Mate 250 ML IV SCH (09:07)
[2016-12-30] MEDS: Furosemide 10 mg/mL 4 mL Inj IVPUSH SCH (09:09)
[2016-12-30] MEDS: Nystatin 100,000 Unit/Gm 15 Gm Powder TOPICAL SCH ×2 (09:09→21:46)
[2016-12-30] MEDS: MethylprednisoLONE Sodium Succinate 62.5 mg/mL 2 mL Inj IVPUSH SCH (09:20)
[2016-12-30] MEDS ORDERED: Pantoprazole 4 mg/mL 10 mL Inj IVPUSH ONE (10:05)
[2016-12-30] MEDS: cefTRIAXone Inj 1,000 MG in Dextrose 5% Minibag Plus 50 ML IV SCH (12:36)
[2016-12-30] MEDS ORDERED: KCl 40 mEq/D5W 500 mL 40 MEQ in IV Premix 1 EACH IV ONE (12:50)
--- NOTE | 2016-12-30 13:56 | DRSVH ---
PROCEDURE: X-RAY CHEST ONE VIEW, PORTABLE ([id number]) INDICATIONS: dyspnea TECHNIQUE: One view of the chest was acquired. COMPARISON: [facility], CR, XR CHEST 1VW (PORTABLE), 12/28/2016, 13:07. FINDINGS: Surgical changes and devices: None. Lungs and pleura: No pleural effusions or pneumothorax. Lung volumes have increased in persistent a irspace opacities present involving the lung bases. Mediastinum: Mediastinal contours appear normal. Heart size is normal. Bones and chest wall: No suspicious bony lesions. Overlying soft tissues appear unremarkable. IMPRESSION: Bibasilar atelectasis versus aspiration or pneumonia. Correlate clinically. Dictated by: Blayne Landers RRA Interpreted: Klarissa Becerra MD on 12/30/2016 at 13:55 Transcribed by: KEITH on 12/30/2016 at 13:56 Approved by: Klarissa Becerra M.D. on 12/31/2016 at 10:16
--- NOTE | 2016-12-30 15:32 | NUR ---
Evaluation completed. Please go to "Notes" then click on "Assessments and Notes" (bottom left corner of screen). Then select appropriate discipline tab on top of screen.
--- NOTE | 2016-12-30 15:39 | NUR ---
Chest pain Pt reported substernal chest discomfort. Rating pain 5/10. Chest wall tender to palpitation. States pain intensifies with deep breathing & cough. No radiating pain. SR per secured entrance monitor. Pressure stable. Continues on BiPAP. No changes in respiratory status. Dr Sims notified of chest pain, EKG and cardiac enzymes ordered.
--- NOTE | 2016-12-30 17:03 | PCM.PNMED ---
Subjective Date of Service Dec 30, 2016 Subjective ICU/pulmonary Patient did well overnight on BiPAP. O2 sat of difficulty breathing but states she is doing somewhat better than yesterday. Would like something to eat or drink however on BiPAP and with her quick desaturation she has been unable to do this. She appears to be oriented but states that she cannot hear. Denies new chest pain, worsening cough, or worsening shortness of breath. All other review of systems negative. Exam Vital Signs Vital Sign - Last Date Time Temp Pulse Resp B/P Pulse Ox O2 Delivery O2 Flow Rate FiO2 12/30/16 16:34 66 26 146/85 94 30 12/30/16 16:14 CPAP/BIPAP 12/30/16 16:13 37.1 12/29/16 08:16 7.00 Intake and Output 12/29/16 12/29/16 12/30/16 Cumulative From/Thru 15:00 23:00 07:00 12/28/16 12:43 - 12/30/16 05:41 Intake Total 750 ml 618 ml 1624 ml Output Total 350 ml 350 ml 1100 ml Balance 400 ml 268 ml 524 ml Intake Oral 0 ml 50 ml IV Total 750 ml 618 ml 1574 ml Output Urine Total 350 ml 350 ml 1100 ml # Bowel Movements 0 0 Exam GEN: Morbidly obese female; no acute distress; responsive HEENT: BPAP in place, dry Cardio: Regular rate and rhythm no murmurs rubs gallops Respiratory: Difficult to auscultate due to habitus, high-pitched crackles noted diffusely in the apices. Abdomen: Positive bowel sounds Extremities: Mild edema severe pain on palpation Psych: Patient seems to be confused and forgetful Neuro: Patient is responsive sensation intact in lower extremities Skin: Dry flaky IVs and Medications Medications Reviewed: Medications were reviewed in detail Lab and Diagnostics Result Diagram: 12/30/16 0340 12/30/16 0340 Microbiology MRSA screen pending. 12/28/2016 Viral PCR positive for respiratory syncytial virus. 12/28/2016 Blood cultures 2: No growth after 24 hours. 12/28/2016 Strep pneumo antigen negative. 12/28/2016 Urine culture positive for greater than 100,000 CFU's for gram-negative rods. 12/28/2016 Influenza screen negative. 12/28/2016 X-Rays, CTs and MRIs X-RAY CHEST ONE VIEW, PORTABLE IMPRESSION: Findings suspicious for right lower lung aspiration or pneumonia. Dictated by: Eddie Rabago M.D. on 12/28/2016 at 13:36 Cardiac Echo Impressions Echocardiogram Report Interpretation Summary The left ventricle is mildly dilated. Left ventricular wall thickness is mildly increased. Left ventricular systolic function is normal. The ejection fraction is estimated to be 60-65%. There are no focal wall motion abnormalities. Assessment of diastolic parameters indicates a relaxation abnormality of the left ventricle, consistent with normal filling pressures. The right ventricle is not well visualized. The right ventricle grossly appears normal in size with probable normal systolic function. Pulmonary artery pressures cannot be estimated because of the lack of a measurable TR jet velocity. The left atrium is mildly dilated. Right atrium not well visualized. There is no significant valvular heart disease. The ascending aorta is at the upper limits of normal in size. Additional Diagnostics [facility] DateTimeAnalyzed 14:41:00 -_ pH ____7.421 - 7.201 7.300 pCO2 ___52.4__ -mmHg 40.0 50.9 pO2 ___60.1__ -mmHg 45.0 70.0 HCO3- ___33.4__ -mmol/L 20.0 24.0 Assessment & Plan Assessment 81-year-old female with ongoing worsening of her chronic respiratory failure. It appears the patient is on 4 L of home O2 with CPAP at night for SONG. Patient lives at [facility] and is susceptible to HCAP with what appears to be a right lower lobe consolidation and has recently not passed her swallow exam. Patient also has positive for RSV. It is likely this patient suffers from sepsis from pneumonia that is worsened by a combination of COPD, obesity hypoventilation, and ongoing RSV. Patient has remarkably improved today, off BiPAP were not oxiemask at 8 L saturations in the 90s. Problem list 1. Acute on chronic hypercarbic respiratory failure 2. Confirmed RSV 3. Acute sepsis: resolved 4. Presumed UTI Recommendations -Fit for Trilogy -Recommend patient go home with either duonebs or Spiriva pending insurance coverage -We will defer to hospitalist team for treatment of UTI Thank you for allowing us to participate in the care of this patient. At this time we will sign off. If there are any additional questions please feel free to contact us Time spent: 20 minutes VTE Prophylaxis: Sub-Q Enoxaparin Resuscitation Status: Limited Interventions Attending Statement The patient was seen and examined together with Dr. Palma on 12/30/2016 and I agree with the history, exam and plan as outlined in the note above. Miller Palma DO Dec 30, 2016 17:03 Saurabh Conti MD Jan 23, 2017 08:57
--- NOTE | 2016-12-30 17:09 | PCM.PNMED ---
Subjective Date of Service Dec 30, 2016 Subjective Mrs. Shayy Butler is an 81-year-old lady with a history of oxygen dependent obstructive sleep apnea and obesity with BMI 56.6 who presented to the emergency department via EMS from [place] due to ongoing shortness of breath that has worsened over the last 3 days. Per admit note patient was doing well last week but 3 days ago began having increased weakness, fevers, became unable to use her walker, and reported urinary frequency per fpc staff. Baseline mental status is unknown, she is currently confused and on interview frequently responds to questions with "I do not know." She does admit to being a former smoker with smoking exposure as a child. She denies cough although she is coughing on interview, fevers although she has a recorded fever above 39 C in the ED, lightheadedness, chest pain. She is currently requiring BiPAP to maintain her oxygen saturations. Overnight events: No significant overnight events. Today: Patient is sitting up in bed with BiPAP in place and claims that she is breathing well. Her mentation is much improved today. She is alert and oriented 3. She continues to maintain light to moderate touch on most of the surfaces of her body is painful. Exam Vital Signs Vital Sign - Last Date Time Temp Pulse Resp B/P Pulse Ox O2 Delivery O2 Flow Rate FiO2 12/30/16 12:12 67 19 142/111 93 30 12/30/16 11:25 37.0 BiPAP 12/29/16 08:16 7.00 Intake and Output 12/29/16 12/29/16 12/30/16 Cumulative From/Thru 15:00 23:00 07:00 12/28/16 12:43 - 12/30/16 05:41 Intake Total 750 ml 618 ml 1624 ml Output Total 350 ml 350 ml 1100 ml Balance 400 ml 268 ml 524 ml Intake Oral 0 ml 50 ml IV Total 750 ml 618 ml 1574 ml Output Urine Total 350 ml 350 ml 1100 ml # Bowel Movements 0 0 Exam General: Elderly obese lady lying in bed tolerating BiPAP, in place in no acute distress, well-nourished, appropriately interactive HEENT: Normocephalic, atraumatic. External ears without defect. Pupils equal, round, and reactive to light and accommodation. Anicteric sclerae, moist conjunctivae, and no lid lag. Oropharynx free of erythema and cobble stoning with moist mucosa. Neck: Supple with full range of motion. JVD difficult to identify due to girth of neck. No bruits. No lymphadenopathy or thyromegaly. Cardiovascular: Regular rate and rhythm with no murmurs, rubs, or gallops appreciated. Pulmonary: Clear to auscultation bilaterally with no crackles, wheezes, or rhonchi. Normal respiratory effort with no use of accessory muscles. Abdomen: Bowel tones present. Soft, obese, nontender, nondistended. No hepatosplenomegaly or masses appreciated. Extremities: No clubbing, cyanosis, edema present throughout however might be just very obese. or lymphadenopathy appreciated. Skin: Normal temperature, turgor, and texture; mild venous stasis rash in lower extremities, ulcers, or subcutaneous nodules appreciated. Light to moderate touch adam to palpation from neck to all extremities. Neurological: Cranial nerves grossly intact. Normal muscle strength, tone, and bulk. Reflexes, coordination, and sensory function within normal limits. No known gait impairment. Psychiatric: Alert and oriented 3. IVs and Medications Medications Reviewed: Medications were reviewed in detail Lab and Diagnostics Result Diagram: 12/30/16 0340 12/30/16 034 Microbiology MRSA screen pending. 12/28/2016 Viral PCR positive for respiratory syncytial virus. 12/28/2016 Blood cultures 2: No growth after 24 hours. 12/28/2016 Strep pneumo antigen negative. 12/28/2016 Urine culture positive for greater than 100,000 CFU's for gram-negative rods. 12/28/2016 Influenza screen negative. 12/28/2016 X-Rays, CTs and MRIs X-RAY CHEST ONE VIEW, PORTABLE IMPRESSION: Findings suspicious for right lower lung aspiration or pneumonia. Dictated by: Eddie Rabago M.D. on 12/28/2016 at 13:36 Cardiac Echo Impressions Echocardiogram Report Interpretation Summary The left ventricle is mildly dilated. Left ventricular wall thickness is mildly increased. Left ventricular systolic function is normal. The ejection fraction is estimated to be 60-65%. There are no focal wall motion abnormalities. Assessment of diastolic parameters indicates a relaxation abnormality of the left ventricle, consistent with normal filling pressures. The right ventricle is not well visualized. The right ventricle grossly appears normal in size with probable normal systolic function. Pulmonary artery pressures cannot be estimated because of the lack of a measurable TR jet velocity. The left atrium is mildly dilated. Right atrium not well visualized. There is no significant valvular heart disease. The ascending aorta is at the upper limits of normal in size. Additional Diagnostics [facility] DateTimeAnalyzed 14:41:00 -_ pH ____7.421 - 7.201 7.300 pCO2 ___52.4__ -mmHg 40.0 50.9 pO2 ___60.1__ -mmHg 45.0 70.0 HCO3- ___33.4__ -mmol/L 20.0 24.0 Assessment & Plan Mrs. Shayy Butler is an 81-year-old lady with a history of oxygen dependent obstructive sleep apnea and obesity with BMI 56.6 who presented to the emergency department via EMS from [place] due to ongoing shortness of breath that has worsened over the last 3 days. Per admit note patient was doing well last week but 3 days ago began having increased weakness, fevers, became unable to use her walker, and reported urinary frequency per fpc staff. Baseline mental status is unknown, she is currently confused and on interview frequently responds to questions with "I do not know." She does admit to being a former smoker with smoking exposure as a child. She denies cough although she is coughing on interview, fevers although she has a recorded fever above 39 C in the ED, lightheadedness, chest pain. She is currently requiring BiPAP to maintain her oxygen saturations. 1. Acute on chronic Respiratory failure, present on admission. Active. - Likely secondary to respiratory syncytial virus. - On home O2 at 2 L nasal cannula. CPAP dependent nightly. - Currently requiring BiPAP FiO2 40%. - ABGs per above. - Pulmonology team consulted, recommendations appreciated. - 1/2 NS IV @100 ml/hour 2. Acute respiratory syncytial virus infection, present on admission. Active. - Viral PCR positive for respiratory syncytial virus. - Continue supportive care. 3. Acute urinary tract infection, present on admission. Active. - UA per above. - Urinary culture, greater than 100,000 colony-forming units gram-negative rods. - Urine culture positive for Citrobacter. Sensitive to current antibiotic regimen of ceftriaxone. - Treatment per above. 4. Acute on chronic COPD exacerbation, present on admission. Active. - Continue appropriate treatments with scheduled Solu-Medrol, duo nebs, albuterol, per above. 5. Right lower lobe pneumonia, present on admission. Active. - Scheduled DuoNeb. - Solu-Medrol 40 mg IV Solu-Medrol daily. - Swallow eval difficult due to BiPAP. 6 . Altered mental status, present on admission. Improving. - Likely second to hypercarbia. - ABGs per above. - Also mental status Improving daily. 7. Possible CHF exacerbation, present on admission. Active. - No prior dCHF dx - Troponin negative 3. - BNP - 4434 - Echocardiogram pending. 8. Sepsis, present on admission. Resolved. - Sepsis criteria met in the ED temperature 39.2, respiratory rate 33, white blood cell count 28.2, UTI, respiratory failure - Received Levaquin, vancomycin, and Zosyn in the emergency department 2016, discontinued 12/29/2016 - Started IV Rocephin 1 g daily and IV azithromycin 500 mg daily. - Lactic acid 1.3, 12/28/2016. 9. Intertrigo, present on admission. Active. - Possible yeast infection/rash under breasts bilaterally. - Nystatin powder twice a day. 10. Chronic hypertension, present on admission. Controlled. - Continue home Lasix. - Continue home hydralazine 50 mg twice a day. 11. Super morbid obesity, present on admission. Active. - BMI 56.6 12. Chronic Depression, present on admission. Active. - Continue home medications - Ropinirole 0.5 mg twice a day. - Sertraline 100 mg daily. - Trazodone 50 mg at night. Acetaminophen for mild pain when necessary. Bowel regimen Senna and MiraLAX scheduled and PRN. Zofran when necessary for nausea and vomiting. SubQ heparin held for now. SCDs in place. Subcutaneous enoxaparin High-risk medications: IV Dilaudid 0.5 mg 1 time Disposition: Likely here for > 2 midnights. Dependent upon respiratory status. Will be discharged to [place] likely greater than 2 days. Pain Evaluation: Adequate Pain Control VTE Prophylaxis: Sub-Q Enoxaparin Resuscitation Status: DNR/DNI:Do Not Resuscitate/Intubate Attending Statement The patient was seen and examined together with Dr. Arredondo on 12/30/2016 and I agree with the history, exam and plan as outlined in the note above. . REAL ARREDONDO DO Dec 30, 2016 14:54 Clifton Contreras MD Dec 31, 2016 17:35
[2016-12-30] MEDS: Insulin GLARgine 100 Unit/mL Syringe SUBQ SCH (21:47)
[2016-12-31] VITALS (12 sets, daily range): BP systolic 97–158; BP diastolic 63–98; PULSE 60–78; RESP 16–23; O2SAT 85–98
[2016-12-31 03:12] LABS: BASOPHILS % (AUTO) 0.1 % (0-3); EOSINOPHILS % (AUTO) 0.1 % (0-5); MONOCYTES % (AUTO) 6.8 % (4-12); Mean Corpuscular Hemoglobin 29.3 pg (27.0-35.0); Mean Corpuscular Volume 92.6 fL (81-100); NEUTROPHILS % (AUTO) 84.8 % (40-74); Platelet Count 277 bil/L (150-400)
[2016-12-31] MEDS: Albuterol 2.5 mg/3 mL Inhalation Solution NEB SCH ×5 (04:04→20:42)
--- NOTE | 2016-12-31 04:32 | NUR ---
Bi-Pap/IV/ On BiPap, IV- NS @ 100, 40 MeQ-K @ 125/hr, Tele S-Aman to SR. lung sounds distant.
[2016-12-31] MEDS: Insulin LISPRO 300 Unit/3 mL Inj SUBQ SCH ×4 (08:00→21:22)
[2016-12-31] MEDS: Furosemide 10 mg/mL 4 mL Inj IVPUSH SCH (08:51)
[2016-12-31] MEDS: Pantoprazole 20 mg ER24 Tablet PO SCH (08:52)
[2016-12-31] MEDS: Azithromycin Inj 500 MG in Dextrose 5% w/Vial Mate 250 ML IV SCH (08:52)
[2016-12-31] MEDS: Nystatin 100,000 Unit/Gm 15 Gm Powder TOPICAL SCH ×2 (08:53→21:10)
[2016-12-31] MEDS: MethylprednisoLONE Sodium Succinate 62.5 mg/mL 2 mL Inj IVPUSH SCH (08:53)
--- NOTE | 2016-12-31 12:36 | PCM.PNMED ---
Subjective Date of Service Dec 31, 2016 Subjective Mrs. Shayy Butler is an 81-year-old lady with a history of oxygen dependent obstructive sleep apnea and obesity with BMI 56.6 who presented to the emergency department via EMS from [place] due to ongoing shortness of breath that has worsened over the last 3 days. Per admit note patient was doing well last week but 3 days ago began having increased weakness, fevers, became unable to use her walker, and reported urinary frequency per assisted staff. Baseline mental status is unknown, she is currently confused and on interview frequently responds to questions with "I do not know." She does admit to being a former smoker with smoking exposure as a child. She denies cough although she is coughing on interview, fevers although she has a recorded fever above 39 C in the ED, lightheadedness, chest pain. She is currently requiring BiPAP to maintain her oxygen saturations. Overnight events: No significant overnight events. Today: Patient is sitting up in bed with nasal canula in place with 4 L and claims that she is breathing well. Her mentation is much improved today. She has significant hearing loss. She is alert and oriented 3. She continues to maintain light to moderate touch on most of the surfaces of her body is painful. Exam Vital Signs Vital Sign - Last Date Time Temp Pulse Resp B/P Pulse Ox O2 Delivery O2 Flow Rate FiO2 12/31/16 04:05 56 19 133/63 96 30 12/31/16 03:31 36.8 BiPAP 12/29/16 08:16 7.00 Intake and Output 12/30/16 12/30/16 12/31/16 Cumulative From/Thru 15:00 23:00 07:00 12/28/16 12:43 - 12/31/16 06:20 Intake Total 1146 ml 1343 ml 4113 ml Output Total 1450 ml 500 ml 3050 ml Balance -304 ml 843 ml 1063 ml Intake Oral 125 ml 0 ml 175 ml IV Total 1021 ml 1343 ml 3938 ml Output Urine Total 1450 ml 500 ml 3050 ml # Bowel Movements 0 0 Exam General: Elderly obese lady lying in bed tolerating nasal canula in place on 4L O2 in no acute distress, well-nourished, appropriately interactive HEENT: Normocephalic, atraumatic. External ears without defect. Pupils equal, round, and reactive to light and accommodation. Anicteric sclerae, moist conjunctivae, and no lid lag. Oropharynx free of erythema and cobble stoning with moist mucosa. Neck: Supple with full range of motion. JVD difficult to identify due to girth of neck. No bruits. No lymphadenopathy or thyromegaly. Cardiovascular: Regular rate and rhythm with no murmurs, rubs, or gallops appreciated. Pulmonary: Clear to auscultation bilaterally with no crackles, wheezes, or rhonchi. Normal respiratory effort with no use of accessory muscles. Abdomen: Bowel tones present. Soft, obese, nontender, nondistended. No hepatosplenomegaly or masses appreciated. Extremities: No clubbing, cyanosis, edema present throughout however might be just very obese. or lymphadenopathy appreciated. Skin: Normal temperature, turgor, and texture; mild venous stasis rash in lower extremities, ulcers, or subcutaneous nodules appreciated. Light to moderate touch adam to palpation from neck to all extremities. Neurological: Cranial nerves grossly intact. Normal muscle strength, tone, and bulk. Reflexes, coordination, and sensory function within normal limits. No known gait impairment. Psychiatric: Alert and oriented 3. IVs and Medications Medications Reviewed: Medications were reviewed in detail Lab and Diagnostics Result Diagram: 12/31/1624412/31/16244 Microbiology MRSA screen pending. 12/28/2016 Viral PCR positive for respiratory syncytial virus. 12/28/2016 Blood cultures 2: No growth after 24 hours. 12/28/2016 Strep pneumo antigen negative. 12/28/2016 Urine culture positive for greater than 100,000 CFU's for gram-negative rods. 12/28/2016 Influenza screen negative. 12/28/2016 X-Rays, CTs and MRIs X-RAY CHEST ONE VIEW, PORTABLE IMPRESSION: Findings suspicious for right lower lung aspiration or pneumonia. Dictated by: Eddie Rabago M.D. on 12/28/2016 at 13:36 Cardiac Echo Impressions Echocardiogram Report Interpretation Summary The left ventricle is mildly dilated. Left ventricular wall thickness is mildly increased. Left ventricular systolic function is normal. The ejection fraction is estimated to be 60-65%. There are no focal wall motion abnormalities. Assessment of diastolic parameters indicates a relaxation abnormality of the left ventricle, consistent with normal filling pressures. The right ventricle is not well visualized. The right ventricle grossly appears normal in size with probable normal systolic function. Pulmonary artery pressures cannot be estimated because of the lack of a measurable TR jet velocity. The left atrium is mildly dilated. Right atrium not well visualized. There is no significant valvular heart disease. The ascending aorta is at the upper limits of normal in size. Additional Diagnostics [facility] DateTimeAnalyzed 14:41:00 -_ pH ____7.421 - 7.201 7.300 pCO2 ___52.4__ -mmHg 40.0 50.9 pO2 ___60.1__ -mmHg 45.0 70.0 HCO3- ___33.4__ -mmol/L 20.0 24.0 Assessment & Plan Mrs. Shayy Butler is an 81-year-old lady with a history of oxygen dependent obstructive sleep apnea and obesity with BMI 56.6 who presented to the emergency department via EMS from [place] due to ongoing shortness of breath that has worsened over the last 3 days. Per admit note patient was doing well last week but 3 days ago began having increased weakness, fevers, became unable to use her walker, and reported urinary frequency per assisted staff. Baseline mental status is unknown, she is currently confused and on interview frequently responds to questions with "I do not know." She does admit to being a former smoker with smoking exposure as a child. She denies cough although she is coughing on interview, fevers although she has a recorded fever above 39 C in the ED, lightheadedness, chest pain. She is currently off BiPAP and near baseline. She is on 4 L nasal cannule O2. 1. Acute on chronic Respiratory failure, present on admission. Improving. - Likely secondary to respiratory syncytial virus. - On home O2 at 2 L nasal cannula. CPAP dependent nightly. - On 4 L nasal cannula. - ABGs per above. 2. Acute respiratory syncytial virus infection, present on admission. Active. - Viral PCR positive for respiratory syncytial virus. - Continue supportive care. 3. Acute urinary tract infection, present on admission. Improving. - Urinary culture, greater than 100,000 colony-forming units gram-negative rods. - UA per above.Urine culture positive for Citrobacter. Sensitive to current antibiotic regimen of ceftriaxone. - Treatment per above. 4. Acute on chronic COPD exacerbation, present on admission. Active. - Continue appropriate treatments with scheduled Solu-Medrol, duo nebs, albuterol, per above. 5. Right lower lobe pneumonia, present on admission. Improving. - Scheduled DuoNeb. - Solu-Medrol 40 mg IV Solu-Medrol daily. - Swallow evaluation recommends modified barium swallow. 6 . Altered mental status, present on admission. Improving. - Likely second to hypercarbia. - ABGs per above. - Mental status Improving daily. 7. Possible CHF exacerbation, present on admission. Active. - No prior dCHF dx - Troponin negative 3. - BNP - 810 down from 4400. - Echocardiogram as above. . 8. Sepsis, present on admission. Resolved. - Sepsis criteria met in the ED temperature 39.2, respiratory rate 33, white blood cell count 28.2, UTI, respiratory failure - Received Levaquin, vancomycin, and Zosyn in the emergency department 2016, discontinued 12/29/2016 - Started IV Rocephin 1 g daily and IV azithromycin 500 mg daily. - Lactic acid 1.3, 12/28/2016. 9. Intertrigo, present on admission. Active. - Possible yeast infection/rash under breasts bilaterally. - Nystatin powder twice a day. 10. Chronic hypertension, present on admission. Controlled. - Continue home Lasix. - Continue home hydralazine 50 mg twice a day. 11. Super morbid obesity, present on admission. Active. - BMI 56.6 12. Chronic Depression, present on admission. Active. - Continue home medications - Ropinirole 0.5 mg twice a day. - Sertraline 100 mg daily. - Trazodone 50 mg at night. Acetaminophen for mild pain when necessary. Bowel regimen Senna and MiraLAX scheduled and PRN. Zofran when necessary for nausea and vomiting. SubQ heparin held for now. SCDs in place. Subcutaneous enoxaparin High-risk medications: IV Dilaudid 0.5 mg 1 time Disposition: Likely here for > 2 midnights. Dependent upon respiratory status. Will be discharged to [place] likely greater than 2 days. Pain Evaluation: Adequate Pain Control VTE Prophylaxis: Sub-Q Enoxaparin VTE Mechanical Devices: Intermittant Pneumatic CD Resuscitation Status: DNR/DNI:Do Not Resuscitate/Intubate Attending Statement The patient was seen and examined together with Dr. Arredondo on 12/31/2016 and I agree with the history, exam and plan as outlined in the note above. . REAL ARREDONDO DO Dec 31, 2016 06:53 Clifton Contreras MD Jan 02, 2017 17:43
[2016-12-31] MEDS: cefTRIAXone Inj 1,000 MG in Dextrose 5% Minibag Plus 50 ML IV SCH (12:42)
--- NOTE | 2016-12-31 14:39 | NUR ---
Patient comes from [facility], gave access and faxed facesheet Updated [employer]
--- NOTE | 2016-12-31 16:13 | NUR ---
NUTRITION ASSESSMENT Assess: 81 yo F w/ acute respiratory failure. Pt on stimulation diet per ST. PO intake is variable. Pt very hard of hearing. State she has a good appetite. PMHx: SONG, Kidney stones, Dysplipidemia, Goiter, PVD, DM 2, RLS LABS: Cl 96, CO2 31, BUN 41, Glu 153, ALT 33 MEDICATIONS: Reviewed. Lasix, Protonix, Insulin, Solu-medrol DIET: Stimulation, PO bites-100% NUTRITION FOCUSED PHYSICAL ASSESSMENT: GI symptoms/stool: No BM recordedBraden: 14 Skin integrity: Dry, flaking, redness Overall Appearance: Obese woman on nasal cannula ANTHROPOMETRICS: Current Wt: 137.9 kgBMI: 49.1 kg/e5Ghccm Wt: 137.9 kg IBW: 59.1 kgAdj BW: 78.7 kgRecent wt changes: None noted ESTIMATED NEEDS: BMI Calories: 5192-2165 kcal/d (25-30 kcal/kg/d Adj BW) Protein: 95-120 g/d (1.2-1.5 g/kg/d Adj BW) Fluids: 0894-4340 ml/d (1 ml/kcal/d) NUTRITION DIAGNOSIS: 1) Chewing/swallowing difficulty related to respiratory failure as evidenced by need for stimulation diet. INTERVENTION: 1) Continue Gelatein TID as ordered. 2) If unable to advance diet, consider nutrition support. MONITOR/EVALUATE: PO intake, Diet adv/sumeet, Labs, Wt, Nutrition status, POC. Will follow per high nutrition risk guidelines.
--- NOTE | 2016-12-31 19:28 | NUR ---
O2/PO intake Patient alert and oriented x3, reported pain x1, tylenol given, patient reported relief. No reports of n/v/d/c or abdominal pain, patient remained on 4L NC throughout shift, SPO2 ranged from 84-95%, attempted to titrate down to 3L but patient would maintain in mid 80s. During coughing fits/moving patient would drop to 85 range but would recover fairly quickly. Bipap for NOC. All other vital signs within normal limits. Very poor PO intake throughout shift, a few bites. Amador patent and draining adequate output (1750mls).
[2016-12-31] MEDS: Insulin GLARgine 100 Unit/mL Syringe SUBQ SCH (21:22)
[2017-01-01] VITALS (9 sets, daily range): BP systolic 163–179; BP diastolic 92–98; PULSE 61–71; RESP 20–25; O2SAT 90–100
[2017-01-01] MEDS: Albuterol 2.5 mg/3 mL Inhalation Solution NEB SCH ×4 (00:53→13:52)
[2017-01-01 02:49] LABS: BASOPHILS % (AUTO) 0.1 % (0-3); EOSINOPHILS % (AUTO) 0 % (0-5); MONOCYTES % (AUTO) 12.2 % (4-12); Mean Corpuscular Hemoglobin 29.4 pg (27.0-35.0); Mean Corpuscular Volume 92.1 fL (81-100); NEUTROPHILS % (AUTO) 74.4 % (40-74); Platelet Count 260 bil/L (150-400)
[2017-01-01 03:55] LABS: Magnesium 2.1 mg/dL (1.6-2.6); Phosphorus 2.9 mg/dL (2.5-4.9)
--- NOTE | 2017-01-01 04:19 | NUR ---
Room Transfer to [id number], on BI-Pap @ 30%, A&O x2 , NS@ 100, Tele SR60's, Seems to have better energy, Stim Diet Meds crushed in sauce. Amador draining pale yellow urine to gravity. slight forgetful about place,
[2017-01-01] MEDS: Insulin LISPRO 300 Unit/3 mL Inj SUBQ SCH ×2 (08:00→12:00)
[2017-01-01] MEDS: Azithromycin Inj 500 MG in Dextrose 5% w/Vial Mate 250 ML IV SCH (08:46)
[2017-01-01] MEDS: Pantoprazole 20 mg ER24 Tablet PO SCH (08:46)
[2017-01-01] MEDS: Furosemide 10 mg/mL 4 mL Inj IVPUSH SCH (08:47)
[2017-01-01] MEDS: MethylprednisoLONE Sodium Succinate 62.5 mg/mL 2 mL Inj IVPUSH SCH (08:48)
[2017-01-01] MEDS: Nystatin 100,000 Unit/Gm 15 Gm Powder TOPICAL SCH (08:48)
--- NOTE | 2017-01-01 10:32 | NUR ---
Called and spoke with Alicia Whiteside at [facility] and let her know patient is most likely ready for discharge. They will put in request to the state for readmittance. Also patient is 1 person min assist for transfer and ambulates short distances with their restorative team. Updated [place] in PT about this so she could do eval and work with patient. Updated [employer]
[2017-01-01] MEDS: cefTRIAXone Inj 1,000 MG in Dextrose 5% Minibag Plus 50 ML IV SCH (12:39)
--- NOTE | 2017-01-01 14:33 | PCM.DIMED ---
REAL ARREDONDO DO 01/01/17 1433: Discharge Instructions Date of Service Jan 01, 2017 Dates of Hospitalization Dec 28, 2016 at 14:53 Discharge Diagnosis Discharge Diagnosis 1. Acute on chronic Respiratory failure, present on admission. Back to baseline. 2. Acute respiratory syncytial virus infection, present on admission. Active. 3. Acute urinary tract infection, present on admission. Improving. 4. Acute on chronic COPD exacerbation, present on admission. Active. 5. Right lower lobe pneumonia, present on admission. Improving. 6 . Altered mental status, present on admission. Improving. 7. Possible CHF exacerbation, present on admission. Active. 8. Sepsis, present on admission. Resolved. 9. Intertrigo, present on admission. Active. 10. Chronic hypertension, present on admission. Controlled. 11. Super morbid obesity, present on admission. Active. 12. Chronic Depression, present on admission. Active. Medication Instructions Continue to use home Oxygen as needed 4-8 L either nasal canula or combined with your CPAP at home. Continue to take your home medications as described. Diet Heart Healthy, Diabetic Call your provider Fever or Chills, Shortness of breath, Bleeding, Chest pain, Vomitting, Excessive diarrhea, Weakness (unilateral) Patient Instructions Do not hesitate to call emergency services or your primary care physician if you experience any of the following. -High unrelenting fevers. -Uncontrolled vomiting. -Severe hypertension. -Syncope or loss of consciousness. -Chest pain or severe shortness of breath. Follow up with your primary care physician in 1-2 weeks time following your emergency department visit for medication checks and general well-being. Follow-up Provider: Jasmeet Xavier MD Follow-up with PCP in: 1 week Clifton Contreras MD 01/02/17 1744: Discharge Instructions Attending's Statement The patient was seen and examined together with Dr. Arredondo on 01/01/2017 and I agree with the history, exam and plan as outlined in the note above. . REAL ARREDONDO DO Jan 01, 2017 14:33 Clifton Contreras MD Jan 02, 2017 17:44
--- NOTE | 2017-01-01 14:36 | NUR ---
Social Work: Discharge Data & Assessment: Patient discharging to [facility] via cabulance. UR specialist will schedule transport once discharge orders are on the chart. Patient is aware of the discharge and is in agreement. SW attempted to call patient's daughter and notify her of the discharge, but there was no answer. SW left a voicemail for patient's daughter notifying her of the discharge with her name and call back number. SW notified patient's nurse. SW will continue to follow. Plan: Patient will discharge to [facility] via Cabulance. ALEJANDRO will continue to follow. Carolyn Leblanc. IRIS. ACM
--- NOTE | 2017-01-01 14:48 | PCM.DC.MED ---
Discharge Summary Date of Service Jan 01, 2017 Dates of Hospitalization Date of Hospital Admission Dec 28, 2016 at 14:53 Date of Discharge: Jan 01, 2017 Providers: Admitting Physician: Abena Joel MD Primary Care Physician: Jasmeet Xavier MD Attending Physician: Abena Joel MD Diagnosis at Time of Discharge Diagnosis at Time of Discharge 1. Acute on chronic Respiratory failure, present on admission. Back to baseline. 2. Acute respiratory syncytial virus infection, present on admission. Active. 3. Acute urinary tract infection, present on admission. Improving. 4. Acute on chronic COPD exacerbation, present on admission. Active. 5. Right lower lobe pneumonia, present on admission. Improving. 6 . Altered mental status, present on admission. Improving. 7. Acute exacerbation of HFpEF, present on admission. Active. 8. Sepsis, present on admission. Resolved. 9. Intertrigo, present on admission. Active. 10. Chronic hypertension, present on admission. Controlled. 11. Super morbid obesity, present on admission. Active. 12. Chronic Depression, present on admission. Active. Procedures XRay, CTs & MRIs X-RAY CHEST ONE VIEW, PORTABLE IMPRESSION: Findings suspicious for right lower lung aspiration or pneumonia. Dictated by: Eddie Rabago M.D. on 12/28/2016 at 13:36 Cardiac Echo Impression Echocardiogram Report Interpretation Summary The left ventricle is mildly dilated. Left ventricular wall thickness is mildly increased. Left ventricular systolic function is normal. The ejection fraction is estimated to be 60-65%. There are no focal wall motion abnormalities. Assessment of diastolic parameters indicates a relaxation abnormality of the left ventricle, consistent with normal filling pressures. The right ventricle is not well visualized. The right ventricle grossly appears normal in size with probable normal systolic function. Pulmonary artery pressures cannot be estimated because of the lack of a measurable TR jet velocity. The left atrium is mildly dilated. Right atrium not well visualized. There is no significant valvular heart disease. The ascending aorta is at the upper limits of normal in size. Other Diagnostics [facility] DateTimeAnalyzed 14:41:00 -_ pH ____7.421 - 7.201 7.300 pCO2 ___52.4__ -mmHg 40.0 50.9 pO2 ___60.1__ -mmHg 45.0 70.0 HCO3- ___33.4__ -mmol/L 20.0 24.0 Brief History Pulmonary consult 81-year-old female with a history of oxygen dependent SONG and obesity with BMI 56.6 he presented to the emergency department via EMS from [place] due to ongoing shortness of breath that has worsened over the last 3 days. Per admit note patient was doing well last week but 3 days ago began having increased weakness, fevers, became unable to use her walker, and reported urinary frequency per detention staff. On interview patient frequently responds to questions "I do not know." She does admit to being a former smoker with smoking exposure as a child. She denies cough although she is coughing on interview, fevers although she has a recorded fever above 39C in the ED, lightheadedness, chest pain, and does not know if she has sick contacts. She does not know if she has a history of tuberculosis exposure, received vaccinations, history of asthma. 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 On admit patient was placed on duonebs, Solu-Medrol, vancomycin, Levaquin, Zosyn , and BiPAP. ABG: PH is 7.421, PCO2 is 52.4, PO2 60.1, bicarbonate is 33.4. Antibiotics were changed earlier today to ceftriaxone and azithromycin. Mental prednisolone was reduced to 40 mg daily today. Labs yesterday morning reveal a white count of 28.2, hemoglobin 13.0, hematocrit of 40.5, platelets of 283 with a left shift. Electrolytes are relatively normal with the glucose of 178. Her procalcitonin was elevated at 0.74. Urine was positive for nitrites, leukocyte esterase, and bacteria; sent for culture Chest x-ray suspicious for right lower lobe pneumonia/aspiration Hospital Course Mrs. Shayy Butler is an 81-year-old lady with a history of oxygen dependent obstructive sleep apnea and obesity with BMI 56.6 who presented to the emergency department via EMS from [place] due to ongoing shortness of breath that has worsened over the last 3 days. Per admit note patient was doing well last week but 3 days ago began having increased weakness, fevers, became unable to use her walker, and reported urinary frequency per detention staff. Baseline mental status is unknown, she is currently confused and on interview frequently responds to questions with "I do not know." She does admit to being a former smoker with smoking exposure as a child. She denies cough although she is coughing on interview, fevers although she has a recorded fever above 39 C in the ED, lightheadedness, chest pain. She is currently off BiPAP and near baseline. She is on 4 - 8 L nasal cannule O2. 1. Acute on chronic Respiratory failure, present on admission. Improving. - Likely secondary to respiratory syncytial virus. - On home O2 at 4 - 8 L nasal cannula. CPAP dependent daily and nightly. - On 7 L nasal cannula. - ABGs per above. 2. Acute respiratory syncytial virus infection, present on admission. improved. - Viral PCR positive for respiratory syncytial virus. - Continue supportive care. 3. Acute urinary tract infection, present on admission. Improving. - Urinary culture, greater than 100,000 colony-forming units gram-negative rods. - UA per above.Urine culture positive for Citrobacter. Sensitive to current antibiotic regimen of ceftriaxone. - Treatment per above. 4. Acute on chronic COPD exacerbation, present on admission. controlled. - Continue appropriate treatments with scheduled Solu-Medrol, duo nebs, albuterol, per above. 5. Right lower lobe pneumonia, present on admission. Improving. - Scheduled DuoNeb. - Solu-Medrol 40 mg IV Solu-Medrol daily. - Swallow evaluation recommends modified barium swallow. 6 . Altered mental status, present on admission. Improving. - Likely second to hypercarbia. - ABGs per above. - Mental status Improving daily. 7. Acute on chronic exacerbation of HFpEF, present on admission. Improved. - History dCHF dx in Dr. Ayala previous note. - Troponin negative 3. - BNP - 810 down from 4400. - Echocardiogram as above. .(Assessment of diastolic parameters indicates a relaxation abnormality of the left ventricle, consistent with normal filling pressures.) 8. Sepsis, present on admission. Resolved. - Sepsis criteria met in the ED temperature 39.2, respiratory rate 33, white blood cell count 28.2, UTI, respiratory failure - Received Levaquin, vancomycin, and Zosyn in the emergency department 2016, discontinued 12/29/2016 - Started IV Rocephin 1 g daily and IV azithromycin 500 mg daily. - Lactic acid 1.3, 12/28/2016. 9. Intertrigo, present on admission. Active. - Possible yeast infection/rash under breasts bilaterally. - Nystatin powder twice a day. 10. Chronic hypertension, present on admission. Controlled. - Continue home Lasix. - Continue home hydralazine 50 mg twice a day. 11. Super morbid obesity, present on admission. Active. - BMI 56.6 12. Chronic Depression, present on admission. Active. - Continue home medications - Ropinirole 0.5 mg twice a day. - Sertraline 100 mg daily. - Trazodone 50 mg at night. Exam Vital Signs (Last) Date Time Temp Pulse Resp B/P Pulse Ox O2 Delivery O2 Flow Rate FiO2 01/01/17 13:52 68 24 99 Nasal Cannula 6.00 01/01/17 11:29 30 01/01/17 08:31 36.5 179/98 Exam General: Elderly obese lady lying in bed tolerating nasal canula in place on 4L O2 in no acute distress, well-nourished, appropriately interactive HEENT: Normocephalic, atraumatic. External ears without defect. Pupils equal, round, and reactive to light and accommodation. Anicteric sclerae, moist conjunctivae, and no lid lag. Oropharynx free of erythema and cobble stoning with moist mucosa. Neck: Supple with full range of motion. JVD difficult to identify due to girth of neck. No bruits. No lymphadenopathy or thyromegaly. Cardiovascular: Regular rate and rhythm with no murmurs, rubs, or gallops appreciated. Pulmonary: Clear to auscultation bilaterally with no crackles, wheezes, or rhonchi. Normal respiratory effort with no use of accessory muscles. Abdomen: Bowel tones present. Soft, obese, nontender, nondistended. No hepatosplenomegaly or masses appreciated. Extremities: No clubbing, cyanosis, edema present throughout however might be just very obese. or lymphadenopathy appreciated. Skin: Normal temperature, turgor, and texture; mild venous stasis rash in lower extremities, ulcers, or subcutaneous nodules appreciated. Light to moderate touch adam to palpation from neck to all extremities. Neurological: Cranial nerves grossly intact. Normal muscle strength, tone, and bulk. Reflexes, coordination, and sensory function within normal limits. No known gait impairment. Psychiatric: Alert and oriented 3. Test 12/28/16 13:00 12/28/16 13:21 12/28/16 17:15 12/30/16 03:40 Prothrombin Time 11.6sec (8.1-12.5) Prothromb Time International Ratio 1.08ratio Activated Partial Thromboplast Time 28.9sec (22.8-33.0) Urine Color Yellow (YELLOW) Urine Appearance Cloudy (CLEAR,HAZY) Urine pH 6.0 (5.0-8.0) Urine Specific [place] 1.018 (1.003-1.035) Urine Protein 100mg/dL (NEG,TRACE) Urine Glucose (UA) Negativemg/dL (NEGATIVE) Urine Ketones Negativemg/dL (NEGATIVE) Urine Occult Blood Trace (NEGATIVE) Urine Nitrite Positive (NEGATIVE) Urine Bilirubin Negative (NEGATIVE) Urine Urobilinogen Normalmg/dL (NORMAL) Urine Leukocyte Esterase Small (NEGATIVE) Urine RBC 0-2/hpf (0-2) Urine WBC 11-50/hpf (0-5) Urine Epithelial Cells Occasional/hpf (NONE-MOD) Urine Crystals None seen (NONE SEEN) Urine Bacteria Many/hpf (NONE-FEW) Urine Hyaline Casts None/lpf (NONE) Urine Granular Casts None seen (NONE SEEN) Urine Waxy Casts None seen (NONE SEEN) Urine Red Blood Cell Casts None seen (NONE SEEN) Urine White Blood Cell Casts None seen (NONE SEEN) Urine Mucus None seen (None Seen) Urine Trichomonas None seen (NONE SEEN) Urine Yeast None (NONE SEEN) Urinalysis Comment None Urine Culture Reflexed Indicated Lactic Acid Level 1.3mmol/L (0.4-2.0) Urine Legionella pneumophilia Ag Negative (Negative) Hemoglobin A1c 6.9% (4.8-5.6) Pro-B-Type Natriuretic Peptide 810.5pg/mL (0-738) Test 12/30/16 21:34 12/31/16 02:45 01/01/17 02:25 Troponin T 0.010ug/L (0.0-0.011) Procalcitonin 0.33ng/mL (0.00-0.08) White Blood Count 11.4th/mm3 (3.8-10.1) Red Blood Count 3.94mil/mm3 (3.90-5.20) Hemoglobin 11.6g/dL (12.0-15.6) Hematocrit 36.3% (35.0-46.0) Mean Corpuscular Volume 92.1fL (81-100) Mean Corpuscular Hemoglobin 29.4pg (27.0-35.0) Mean Corpuscular Hemoglobin Concent 32.0% (32.0-37.0) Red Cell Distribution Width 14.7% (12.3-15.4) Platelet Count 260bil/L (150-400) Neutrophils (%) (Auto) 74.4% (40-74) Lymphocytes (%) (Auto) 12.8% (14-46) Monocytes (%) (Auto) 12.2% (4-12) Eosinophils (%) (Auto) 0% (0-5) Basophils (%) (Auto) 0.1% (0-3) Sodium Level 142mEq/L (134-144) Potassium Level 3.8mEq/L (3.5-5.2) Chloride Level 99mEq/L (97-108) Carbon Dioxide Level 35mmol/L (18-29) Blood Urea Nitrogen 25mg/dL (8-27) Creatinine 0.58mg/dL (0.57-1.00) Estimat Glomerular Filtration Rate 143mL/min (>59) Glucose Level 117mg/dL (60-99) Calcium Level 8.8mg/dL (8.5-10.1) Phosphorus Level 2.9mg/dL (2.5-4.9) Magnesium Level 2.1mg/dL (1.6-2.6) Total Bilirubin 0.6mg/dL (0.0-1.2) Aspartate Amino Transf (AST/SGOT) 33U/L (0-50) Alanine Aminotransferase (ALT/SGPT) 50U/L (0-32) Alkaline Phosphatase 54U/L (25-165) Total Protein 5.6g/dL (6.4-8.4) Albumin 3.3g/dL (3.4-5.0) Microbiology Results MRSA screen pending. 12/28/2016 Viral PCR positive for respiratory syncytial virus. 12/28/2016 Blood cultures 2: No growth after 24 hours. 12/28/2016 Strep pneumo antigen negative. 12/28/2016 Urine culture positive for greater than 100,000 CFU's for gram-negative rods. 12/28/2016 Influenza screen negative. 12/28/2016 Discharge Medications Discharge Medications Albuterol/Ipratropium (Combivent Respimat Inhal Brutus) 120 Spr/4 Gm Inhaler 1 PUFF IH BID (Reported) Aspirin (Aspirin) 81 Mg Tablet 81 MG PO DAILY (Reported) Atenolol (Atenolol) 25 Mg Tablet 12.5 MG PO BID hold if SBP<110 or HR<60 Prescribed by: SAMANTHA YOON MD Azithromycin (Azithromycin) 500 Mg Tablet 500 MG PO DAILY Prescribed by: REAL ARREDONDO DO Budesonide/Formoterol 160-4.5 mcg Inh (Symbicort 160-4.5 mcg Inh) 120 Puff Inhaler 1 PUFF INHALATION BID (Reported) Cholecalciferol (Vitamin D3) (Vitamin D) 1,000 Unit Capsule 2,000 UNIT PO DAILY (Reported) Furosemide (Furosemide) 80 Mg Tab 80 MG PO DAILY (Reported) Hydralazine (Hydralazine) 25 Mg Tablet 50 MG PO BID Prescribed by: SAMANTHA YOON MD Lisinopril (Lisinopril) 20 Mg Tablet 20 MG PO BID (Reported) Nystatin (Nystatin) 1 Each Powder.ea. 1 APPLIC TOPICAL BID Prescribed by: REAL ARREDONDO DO [place]-3/Dha/Epa/Fish Oil (Fish Oil 1,000 mg Softgel) 1 Each Capsule 1 EACH PO DAILY (Reported) Potassium Chloride (Potassium Chloride) 10 Meq Capsule.er 10 MEQ PO HS (Reported ) TAKE WITH FOOD Prednisone (PredniSONE) 20 Mg Tablet 20 MG PO DAILY Prescribed by: REAL ARREDONDO DO Ropinirole (Ropinirole) 0.5 Mg Tablet 0.5 MG PO BID (Reported) Sertraline HCl (Sertraline) 100 Mg Tablet 100 MG PO DAILY (Reported) Trazodone (Trazodone) 50 Mg Tablet 100 MG PO HS (Reported) As needed Acetaminophen (Acetaminophen) 325 Mg Capsule 650 MG PO QID PRN PRN For Pain ( Reported) Additional med instructions Continue to use home Oxygen as needed 4-8 L either nasal canula or combined with your CPAP at home. Continue to take your home medications as described. Followup Plan Discharge Diet: Heart Healthy, Diabetic Patient Instructions Do not hesitate to call emergency services or your primary care physician if you experience any of the following. -High unrelenting fevers. -Uncontrolled vomiting. -Severe hypertension. -Syncope or loss of consciousness. -Chest pain or severe shortness of breath. Follow up with your primary care physician in 1-2 weeks time following your emergency department visit for medication checks and general well-being. Follow-up Provider: Jasmeet Xavier MD Follow-up with PCP in: 1 week Time spent Greater than 30 minutes was spent in preparation of discharge with greater than 50% of that time dedicated to patient counseling and coordination of care. . Attending Statement The patient was seen and examined together with Dr. Arredondo on 01/01/2017 and I agree with the history, exam and plan as outlined in the note above. . copies to: Jasmeet Xavier MD, COREY P DO Jan 01, 2017 14:47 Clifton Contreras MD Jan 02, 2017 17:45
[2017-01-01] MEDS ORDERED: NYST1POW25 TOPICAL (14:53)
[2017-01-01] MEDS ORDERED: PRE20 PO (14:55)
[2017-01-01] MEDS ORDERED: AZIT500T5 PO (14:56)
--- NOTE | 2017-01-01 15:20 | NUR ---
Faxed orders to [facility] and arranged BLS transport for 1615 via [facility]. Patient is needing continuous O2 monitoring and is on 7 liters oxy mask. Discussed this patient with TRAVEL REGISTERED NURSE ONCOLOGY Commercial Manager and she agrees with S decision. Spoke with Alicia Whiteside at [facility] and updated on time of transport. Updated TRAVEL REGISTERED NURSE ONCOLOGY and RN
--- NOTE | 2017-01-01 17:13 | NUR ---
Discharge She discharged from [facility] 2005 at 1625 with the visitor services technician to head to [facility]. Her IV and Amador were discontinued intact. Report given to the visitor services technician and Pricila the nurse at [facility]. She was placed on 6L of O2. Discharge packet given to the visitor services technician. She thanked staff for her care.
== END 2017-01-01 16:25 | DRG 871 ==
LOC: SED 12:30 → EDBD 12:30 → CCU 14:53 → PCC 21:04
PROVIDERS: ADMIT Urology; ATTEND Urology
PROC: 5A09458 Assistance with Respiratory Ventilation, 24-96 Consecutive Hours, Intermittent Positive Airway Pressure (ICD-10-PCS; principal; 2016-12-28)
DX: A41.9 Sepsis, unspecified organism (principal); J96.22 Acute and chronic respiratory failure with hypercapnia; J18.9 Pneumonia, unspecified organism; I50.31 Acute diastolic (congestive) heart failure; N39.0 Urinary tract infection, site not specified; Z68.43 Body mass index [BMI] 50.0-59.9, adult; J44.1 Chronic obstructive pulmonary disease with (acute) exacerbation; B97.4 Respiratory syncytial virus as the cause of diseases classified elsewhere; E66.01 Morbid (severe) obesity due to excess calories; L30.4 Erythema intertrigo; Z79.82 Long term (current) use of aspirin; Z79.52 Long term (current) use of systemic steroids; Z66 Do not resuscitate; Z87.891 Personal history of nicotine dependence; G47.33 Obstructive sleep apnea (adult) (pediatric); F32.9 Major depressive disorder, single episode, unspecified; B96.89 Other specified bacterial agents as the cause of diseases classified elsewhere; Z99.81 Dependence on supplemental oxygen